=== PATIENT | male | born 1965 | race Caucasian/White ===

== ENCOUNTER 2017-08-06 18:51 | Emergency (ER) | payer BC ==
[2017-08-06 19:26] LABS: BASOPHILS 0.1 % (0-2); EOSINOPHILS 5.2 % (0-7); HEMATOCRIT 40.9 % (42.0-54.0); HEMOGLOBIN 13.1 g/dL (13.5-17.5); IMMATURE GRANULOCYTES 0.6 % (0-5); LYMPHOCYTES 23.5 % (15-50); MCH 31.1 pg (26.0-34.0); MCV 97.1 fL (80.0-100.0); MEAN PLATELET VOLUME 9.2 fL (7.4-10.4); MONOCYTES 7.2 % (2-11); NEUTROPHILS 63.4 % (40-80); PLATELET COUNT 242 10x3/uL (130-400); RBC 4.21 10x6/uL (4.20-6.10); RDW 14.6 % (11.5-14.5); WBC 9.7 10x3/uL (4.8-10.8)
[2017-08-06 19:41] LABS: ALBUMIN 3.2 g/dL (3.4-5.0); ALKALINE PHOSPHATASE 66 U/L (46-116); ALT (SGPT) 31 U/L (10-68); BILIRUBIN - TOTAL 0.21 mg/dL (0.2-1.3); CALC OSMOLALITY 287 mosm/kg (275-300); CALCIUM 8.4 mg/dL (8.5-10.1); CARBON DIOXIDE 28.1 mmol/L (21.0-32.0); CHLORIDE - SERUM 107 mmol/L (98-107); CREATININE - SERUM 0.9 mg/dL (0.6-1.3); GLUCOSE 113 mg/dL (74-106); POTASSIUM - SERUM 3.8 mmol/L (3.5-5.1); PROTEIN - SERUM 6.8 g/dL (6.4-8.2); SODIUM 143 mmol/L (136-145); UREA NITROGEN 19 mg/dL (7-18); eGFR NON AFRICAN AMERICAN > 90 mL/min (90-120)
== END 2017-08-06 21:37 | disposition home or self-care (01) ==
LOC: D.ER 18:51
PROVIDERS: Emergency Medicine
DX: S00.01XA Abrasion of scalp, initial encounter (principal); V86.59XA Driver of other special all-terrain or other off-road motor vehicle injured in nontraffic accident, initial encounter; Y93.89 Activity, other specified; Y92.89 Other specified places as the place of occurrence of the external cause; S43.402A Unspecified sprain of left shoulder joint, initial encounter; S22.41XA Multiple fractures of ribs, right side, initial encounter for closed fracture; I45.10 Unspecified right bundle-branch block